=== PATIENT | female | born 1960 | race Two or more races ===

== ENCOUNTER 2019-02-25 08:00 | Outpatient (CLI) | payer OTHER ==
[~2019-02-25] VITALS: Ht 152.4 cm; Wt 66.7 kg
== END 2019-02-25 14:44 | disposition home or self-care (01) ==
LOC: OFIC 805 08:00
DX: H93.12 Tinnitus, left ear (principal); H90.42 Sensorineural hearing loss, unilateral, left ear, with unrestricted hearing on the contralateral side